=== PATIENT | female | born 1955 | race Caucasian/White ===

== ENCOUNTER → 2017-10-18 | Outpatient (CLI) | payer BC ==
[~2017-10-18] MED LIST: ALBU90OI; BACL10 PO; BREO ELLIPTA 11 EACH INH; BUPR150ER PO; CELE100 PO; DESV50 PO; ESTRADIOL1 MG PO; GABA600 PO; INCRUSE ELLI62.5 MCG INH; LEVSOD100 PO; LOSARTAN POTASS25 MG PO; OXCA300 PO; Omeprazole20 M1 PO; TRAZ100 PO
[2017-10-18 12:27] LABS: BASOPHILS ABSOLUTE AUTO 0.06 K/mm3 (0.00-0.23); BASOPHILS PERCENT AUTO 1 % (0-2); EOSINOPHILS ABSOLUTE AUTO 0.19 K/mm3 (0.00-0.68); EOSINOPHILS PERCENT AUTO 2 % (0-6); Hematocrit 39.7 % (33.0-51.0); Hemoglobin 14.1 g/dL (11.5-16.0); IMMATURE GRAN ABSOLUTE AUTO 0.02 K/mm3 (0.00-0.10); IMMATURE GRAN PERCENT AUTO 0 % (0-1); LYMPHOCYTES ABSOLUTE AUTO 1.64 K/mm3 (0.84-5.20); LYMPHOCYTES PERCENT AUTO 20 % (21-46); MONOCYTES ABSOLUTE AUTO 0.48 K/mm3 (0.16-1.47); MONOCYTES PERCENT AUTO 6 % (4-13); Mean Corpuscular HGB 32.7 pg (26.0-34.0); Mean Corpuscular HGB Conc 35.5 g/dL (31.5-36.5); Mean Corpuscular Volume 92 fL (80-100); Mean Platelet Volume 10.4 fL (9.1-12.4); NEUTROPHILS ABSOLUTE AUTO 5.96 K/mm3 (1.96-9.15); NEUTROPHILS PERCENT AUTO 72 % (41-73); Platelet Count 261 K/mm3 (150-400); RDW Coefficient Variation 13.7 % (11.7-14.2); RDW Standard Deviation 47.2 fL (35.1-46.3); Red Blood Cell Count 4.31 M/mm3 (3.80-5.20); White Blood Cell Count 8.35 K/mm3 (4.00-11.30)
[2017-10-18 12:48] LABS: Anion Gap 10 mmol/L (6-16); Blood Urea Nitrogen 13 mg/dL (8-24); Bun/Creatinine Ratio 15.7 (12.0-20.0); CO2, Blood 27 mmol/L (21-32); Calcium, Blood 8.8 mg/dL (8.5-10.1); Chloride, Blood 105 mmol/L (98-108); Creatinine, Blood 0.83 mg/dL (0.40-1.00); Glomerular Filtration Rate >60 (60-); Glucose, Blood 105 mg/dL (70-99); Potassium, Blood 3.7 mmol/L (3.5-5.5); Sodium, Blood 142 mmol/L (136-145); Thyroid Stimulating Hormone 2.602 uIU/mL (0.360-4.800)
== END | disposition home or self-care (01) ==
LOC: LAB EV 12:23
PROVIDERS: Family Medicine
DX: R53.83 Other fatigue (principal)
CPT/HCPCS: 80048; 84443; 85025

== ENCOUNTER 2017-11-25 08:41 | Day surgery (SDC) | payer BC ==
[~2017-11-25] VITALS: Ht 172.7 cm; Wt 73.0 kg
== END 2017-11-25 11:23 | disposition home or self-care (01) ==
LOC: ORSCSDS 08:41
PROVIDERS: Internal Medicine Gastroenterology
PROC: 0D758ZZ Dilation of Esophagus, Via Natural or Artificial Opening Endoscopic (ICD-10-PCS; principal; 2017-11-25 10:00)
PROC: 0DJ08ZZ Inspection of Upper Intestinal Tract, Via Natural or Artificial Opening Endoscopic (ICD-10-PCS; principal; 2017-11-25 10:00)
DX: R13.10 Dysphagia, unspecified (principal); K29.70 Gastritis, unspecified, without bleeding; R11.2 Nausea with vomiting, unspecified; R10.9 Unspecified abdominal pain; R63.4 Abnormal weight loss; R19.4 Change in bowel habit; Z87.891 Personal history of nicotine dependence; Z79.899 Other long term (current) drug therapy
CPT/HCPCS: 88305; 88342; J7120

== ENCOUNTER → 2019-02-13 | Outpatient (CLI) | payer MEDICARE, BC, OTHER ==
[2019-02-15 10:25] LABS: Stool Occult Bld Immuno 1 Negative (NEGATIVE)
== END | disposition home or self-care (01) ==
LOC: LAB EV 09:30
PROVIDERS: Physician Assistant
DX: Z13.9 Encounter for screening, unspecified (principal)
CPT/HCPCS: G0328

== ENCOUNTER 2021-05-03 10:23 | Day surgery (SDC) | payer MEDICARE, BC, OTHER ==
[~2021-05-03] VITALS: Ht 170.2 cm; Wt 79.2 kg
--- NOTE | 2021-05-03 11:57 | NUR ---
05/03/21 1157 Mirta Salguero RIGHT KNEE POST
--- NOTE | 2021-05-03 15:21 | NUR ---
05/03/21 1521 Alma Graff S PT.'S SAID THEY NEVER HAD NORCO RX FILLED BUT TOOK IT IN TO BE FILLED TODAY. DR. SILVERIO WROTE ANOTHER RX FOR PERCOCET. DR. SILVERIO CALLED BY [facility] [place]AR[place] WHICH RX HE WANTED. PER DR. SILVERIO HE THINKS PT. SHOULD HAVE THE PERCOCET RX INSTEAD OF THE NORCO. WILL CALL [facility] TO CANCEL NORCO RX & WILL GIVE NEW RX FOR PERCOCET. INSTRUCTED ON THIS.
== END 2021-05-03 16:15 | disposition home or self-care (01) ==
LOC: ORSCSDS 10:23
PROVIDERS: Orthopaedic Surgery
PROC: 0QS Lower Bones, Reposition (ICD-10-PCS; principal; 2021-05-03 11:30)
PROC: 0QUG4KZ Supplement Right Tibia with Nonautologous Tissue Substitute, Percutaneous Endoscopic Approach (ICD-10-PCS; principal; 2021-05-03 11:30)
DX: S82.121A Displaced fracture of lateral condyle of right tibia, initial encounter for closed fracture (principal); F17.210 Nicotine dependence, cigarettes, uncomplicated; I10 Essential (primary) hypertension; J43.9 Emphysema, unspecified; J45.909 Unspecified asthma, uncomplicated; Z87.891 Personal history of nicotine dependence; E03.9 Hypothyroidism, unspecified; L40.9 Psoriasis, unspecified; E78.5 Hyperlipidemia, unspecified; Z79.899 Other long term (current) drug therapy
CPT/HCPCS: A9270; C1713; C1769; J0171; J0690; J1100; J1170; J2405; J2704; J3010; J7120

== ENCOUNTER 2023-01-28 08:31 | Day surgery (SDC) | payer MEDICARE, BC, OTHER ==
[~2023-01-28] VITALS: Ht 165.1 cm; Wt 79.4 kg
[2023-01-28] VITALS (20 sets, daily range): BP systolic 119–168; BP diastolic 70–108
[~2023-01-28 08:31] MED LIST changes: +ALBU8HFA2 INH; -ALBU90OI; +ALBU90OI NEB; +Amitriptyline H10 MG PO; +BREO ELLIPTA 11 EAC1 INH; +BUPROPION HCL100 MG PO; -ESTRADIOL1 MG PO; +EUTHYROX100 MC1 PO; +Estradiol1 MG PO; +GABA300 PO; -GABA600 PO; +KRILL OIL500 MG PO; +LOSA50 PO; -LOSARTAN POTASS25 MG PO; +MERIBIN5 MG PO; +MULVITA PO; +NORT25 PO; +OMEP20ER PO; +OXCA150 PO; -OXCA300 PO; -Omeprazole20 M1 PO; +RED RICE YEAST PO; +VITAMIN D325 MC3 PO; +Vitamin B-12100 MCG PO
--- NOTE | 2023-01-28 08:55 | NUR ---
Ambulatory in Day Surgery with walker, however patient states she brought it for post-operatively. Pre-Op teaching done. Pt verbalizes understanding. Patient confirms NPO status and agrees with scheduled surgery. Patient reports completing Chlorhexadine shower X2 prior to admission to hospital. Lungs clear T/O to Auscultation. Surgical site prepped with 2% Chlorhexidine cloth wipe. History, Chart, Medications and Allergies reviewed before start of procedure.
[2023-01-28] MEDS ORDERED: ASPI81CH PO (10:46)
[2023-01-28] MEDS ORDERED: OXYC5 PO (10:47)
[2023-01-28] MEDS ORDERED: SULTRIDS PO (10:47)
[2023-01-28] MEDS ORDERED: PROM25 PO (10:47)
--- NOTE | 2023-01-28 14:46 | NUR ---
PATIENT CAME BACK FROM PACU TODAY AT 1430. POD 0 RIGHT TKA PATIENT IS A&OX4. PATIENT IS ON 2L NC WITH >90% OXYGEN SATS AT THIS TIME. SHE DENIES PAIN IN HER RIGHT KNEE AT THIS TIME. SHE IS ABLE TO MOVE FINGERS AND TOES WHEN ASKED. PEDAL PULSES ARE WARM TO TOUCH AND STRONG. FARZANEH WRAP IS C/D/I ON THE RIGHT KNEE. POLAR PACK IN PLACE. PATIENT AND PATIENTS WERE EDUCATED ON IGNITION SOURCES AND THE RISKS ASSOCIATED. BOTH VERBALIZED UNDERSTANDING AND HAD NO FURTHER QUESTIONS WELL DENIED HAVING IGNITION SOURCES IN THEIR PERSONAL BELONGINGS. PATIENT IS LAYING IN BED WITH CALL LIGHT IN REACH. AT BEDSIDE. PATIENT IS TOLERATING SMALL AMOUNTS OF PO INTAKE.
--- NOTE | 2023-01-28 17:02 | NUR ---
SHIFT SUMMARY: POD 0 RIGHT TKA PATIENT IS A&OX4. VS ARE WNL AND IS ON RA. PAIN IS MANAGED WITH PO PAIN MEDICATIONS. HER RIGHT KNEE AFTER WORKING WITH PHYSICAL THERAPY HAD A SMALL BLOOD COMING THROUGH THE FARZANEH WRAP BUT HAS SINCE BEEN CHANGED AND IS C/D/I. PATIENT DENIES NUMBNESS OR TINGLING AND IS ABLE TO WIGGLE FINGERS AND TOES WHEN ASKED. PEDAL PULSES ARE STRONG AND WARM TO TOUCH. POLAR PACK IN PLACE. PATIENT IS SITTING UP IN A RECLINER WITH CALL LIGHT IN REACH AND LEGS ELEVATED IN RECLINER.
--- NOTE | 2023-01-28 18:30 | NUR ---
PATIENTS RIGHT KNEE DRESSING WAS CHANGED AFTER PATIENT WENT TO THE BATHROOM WITH THE FWW AND GAIT BELT. THIS NURSE UNWRAPPED THE DRESSING AND NOTICED IT IS ONE SMALL SPOT THAT IS CONTINUOUSLY BLEEDING. THIS NURSE THEN NOTIFIED DR. SILVERIO OF THE FINDINGS. DR. SILVERIO STATED "CLEAN THE INCISION WITH HYDROGEN PEROXIDE AND RE-DRESS/REINFORCE WITH FARZANEH WRAP/GAUZE/ABD NEEDED. WELL CONTINUE POLAR PACK ON THE KNEE AND DO NOT GIVE THE BLOOD THINNER TONIGHT". THIS NURSE RE-DRESSED HER RIGHT KNEE AND IS C/D/I. REPORTED TO NIGHTSHIFT NURSE WHAT DR. SILVERIO SAID. PATIENT IS LAYING IN BED WITH CALL LIGHT IN REACH.
--- NOTE | 2023-01-28 21:00 | NUR ---
DRESSING CHANGE DURING SHIFT ASSESSMENT, IT IS NOTED THAT INCISION CONTINUES TO BLEED AT LATERAL SIDE OF KNEE. DRESSING SATURATED W/ BRIGHT RED BLOOD. DRESSINGS REMOVED, HYDROGEN PEROXIDE PATTED AND REDRESSED W/ ABD, GAUZE WRAP, AND FARZANEH BANDAGE.
--- NOTE | 2023-01-28 22:54 | NUR ---
CALL TO NUSRAT SPOKE WITH NUSRAT REGARDING BLEEDING AND INFORMED TO CONTINUE TO REINFORCE DRESSINGS WHILE APPLYING PRESSURE TO ASSIST IN CLOT FORMATION. NOTIFY IF INCREASE IN BLOOD DRAINAGE OR CHANGES IN STATUS.
[2023-01-29 00:21] VITALS: BP 130/67
[2023-01-29 04:36] VITALS: BP 128/72
[2023-01-29 05:26] LABS: BASOPHILS ABSOLUTE AUTO 0.05 K/mm3 (0.00-0.23); BASOPHILS PERCENT AUTO 0 % (0-2); EOSINOPHILS ABSOLUTE AUTO 0.03 K/mm3 (0.00-0.68); EOSINOPHILS PERCENT AUTO 0 % (0-6); Hematocrit 25.8 % (33.0-51.0); Hemoglobin 8.8 g/dL (11.5-16.0); IMMATURE GRAN ABSOLUTE AUTO 0.05 K/mm3 (0.00-0.10); IMMATURE GRAN PERCENT AUTO 0 % (0-1); LYMPHOCYTES PERCENT AUTO 19 % (21-46); MONOCYTES ABSOLUTE AUTO 1.56 K/mm3 (0.16-1.47); MONOCYTES PERCENT AUTO 12 % (4-13); Mean Corpuscular HGB 31.9 pg (26.0-34.0); Mean Corpuscular HGB Conc 34.1 g/dL (31.5-36.5); Mean Corpuscular Volume 94 fL (80-100); Mean Platelet Volume 10.6 fL (9.1-12.4); NEUTROPHILS ABSOLUTE AUTO 9.15 K/mm3 (1.96-9.15); NEUTROPHILS PERCENT AUTO 68 % (41-73); Platelet Count 241 K/mm3 (150-400); RDW Coefficient Variation 14.6 % (11.7-14.2); RDW Standard Deviation 50.1 fL (35.1-46.3); Red Blood Cell Count 2.76 M/mm3 (3.80-5.20); White Blood Cell Count 13.44 K/mm3 (4.00-11.30)
--- NOTE | 2023-01-29 06:02 | NUR ---
SHIFT SUMMARY POD 1 R TKA, DRESSING VISIBLE W/ BRIGHT RED BLOOD TO LATERAL INCISION AT KNEE. DRESSING CHANGED X1 THIS SHIFT, ADVISED BY DR. SILVERIO TO REINFORCE DRESSINGS WITHOUT CHANGING. FARZANEH WRAP SNUG TO ENCOURAGE CLOT FORMATION. VSS, PT DENIES DIZZINESS, SOB, N/T, N/V. SBA W/ WALKER TO BATHROOM, PT INDEPENDANT IN BED. PT MEDICATED FOR PAIN X1 OXY 5MG THIS SHIFT AT HS. PT SLEPT WELL T/O NIGHT. NO ACUTE CHANGES. CALL LIGHT IN REACH. WILL REPORT TO DAY SHIFT STAFF.
[2023-01-29 06:13] LABS: Bun/Creatinine Ratio 19.5 (12.0-20.0); Calcium, Blood 7.9 mg/dL (8.5-10.1); Creatinine, Blood 0.82 mg/dL (0.40-1.00); Magnesium, Blood 1.6 mg/dL (1.6-2.4); Potassium, Blood 3.8 mmol/L (3.5-5.5)
[2023-01-29 07:47] VITALS: BP 143/71
[2023-01-29 14:38] VITALS: BP 125/74
--- NOTE | 2023-01-29 18:02 | NUR ---
SHIFT SUMMARY PT AxOx4. POST OP DAY 1 FROM TOTAL RIGHT KNEE ARTHROPLASTY. PT MEDICATED FOR PAIN PER EMAR. RLE ELEVATED AND ICED PRN. PHYSICAL THERAPY IN FOR EVAL AND TREAT THIS AFTERNOON. PT TOLERATED AMBULATING IN HALLS WELL. LATERAL KNEE WOUND BLEEDING THROUGH BANDAGE THIS AM. SURGEON PRESENT FOR DRESSING CHANGE AND ASSESSMENT. BLEEDING DID SLOW SIGNIFICANTLY THROUGHOUT THE DAY AND WAS REASSESSED AND REDRESSED BY AT APPROX 1700. PER PROVIDER, PATIENT WAS APPROPRIATE FOR DISCHARGE AT THIS TIME. PT AND HER SPOUSE WERE PROVIDED DC INSTRUCTIONS AT THIS TIME INCLUDING FOLLOW UP INFORMATION, PHYSICAL THERAPY INFO, WOUND CARE INSTRUCTIONS, DISCHARGE MEDICATIONS AND PATIENT EDUCATION PACK ON POST OP CARE. PT AND SPOUSE VERBALIZE UNDERSTANDING. PT WAS SAFELY ESCORTED OUT VIA WC WITH PEN MAKER AND SPOUSE.
--- NOTE | 2023-01-30 16:19 | NUR ---
01/30/23 1619 Krupa De Paz VERIFICATION: EDIT CHART.
== END 2023-01-29 18:45 | disposition home or self-care (01) ==
LOC: ORSCMMR 08:31 → MEDS 14:04 → ORSCMMR 01-29 18:45
PROVIDERS: Orthopaedic Surgery
PROC: 0SRC0J9 Replacement of Right Knee Joint with Synthetic Substitute, Cemented, Open Approach (ICD-10-PCS; principal; 2023-01-28 10:45)
PROC: 0SPD04Z Removal of Internal Fixation Device from Left Knee Joint, Open Approach (ICD-10-PCS; principal; 2023-01-28 10:45)
DX: M17.11 Unilateral primary osteoarthritis, right knee (principal); S82.121D Displaced fracture of lateral condyle of right tibia, subsequent encounter for closed fracture with routine healing; I10 Essential (primary) hypertension; J44.9 Chronic obstructive pulmonary disease, unspecified; E78.5 Hyperlipidemia, unspecified; E03.9 Hypothyroidism, unspecified; Z79.899 Other long term (current) drug therapy; Z87.891 Personal history of nicotine dependence
CPT/HCPCS: 36416; 73560-RT; 80048; 83735; 85025; 94640; 94664; 94760; 97110; 97116; 97162; A9270; C1713; C1776; J0171; J0690; J0735; J1885; J2795; J3010; J3370; J7120

== ENCOUNTER 2024-03-14 20:57 | Emergency (ER) | payer MEDICARE, BC ==
[~2024-03-14] VITALS: Ht 167.6 cm; Wt 79.4 kg
[~2024-03-14 20:57] MED LIST changes: +ASPI81CH PO; +OXYC5 PO; +PROM25 PO; +SULTRIDS PO
[2024-03-14 22:42] LABS: BASOPHILS ABSOLUTE AUTO 0.06 K/mm3 (0.00-0.23); BASOPHILS PERCENT AUTO 1 % (0-2); EOSINOPHILS ABSOLUTE AUTO 0.08 K/mm3 (0.00-0.68); EOSINOPHILS PERCENT AUTO 1 % (0-6); Hematocrit 40.8 % (33.0-51.0); Hemoglobin 14.1 g/dL (11.5-16.0); IMMATURE GRAN ABSOLUTE AUTO 0.02 K/mm3 (0.00-0.10); IMMATURE GRAN PERCENT AUTO 0 % (0-1); LYMPHOCYTES ABSOLUTE AUTO 1.56 K/mm3 (0.84-5.20); LYMPHOCYTES PERCENT AUTO 18 % (21-46); MONOCYTES ABSOLUTE AUTO 0.36 K/mm3 (0.16-1.47); MONOCYTES PERCENT AUTO 4 % (4-13); Mean Corpuscular HGB 31.6 pg (26.0-34.0); Mean Corpuscular HGB Conc 34.6 g/dL (31.5-36.5); Mean Corpuscular Volume 92 fL (80-100); Mean Platelet Volume 10.6 fL (9.1-12.4); NEUTROPHILS ABSOLUTE AUTO 6.51 K/mm3 (1.96-9.15); NEUTROPHILS PERCENT AUTO 76 % (41-73); Platelet Count 388 K/mm3 (150-400); RDW Standard Deviation 47.7 fL (35.1-46.3); Red Blood Cell Count 4.46 M/mm3 (3.80-5.20); White Blood Cell Count 8.59 K/mm3 (4.00-11.30)
[2024-03-14 22:55] LABS: Albumin, Blood 4.4 g/dL (3.4-5.0); Bilirubin, Total 0.6 mg/dL (0.1-1.0); Bun/Creatinine Ratio 31.1 (12.0-20.0); Creatinine, Blood 0.74 mg/dL (0.40-1.00); Globulin, Blood 4.2 g/dL (2.2-4.0); Potassium, Blood 4.1 mmol/L (3.5-5.5); Total Protein, Blood 8.6 g/dL (6.4-8.2)
[2024-03-14] MEDS ORDERED: NS 1,000 ML IV SCH (23:55)
[2024-03-14] MEDS ORDERED: Ondansetron HCl 2 MG / ML 2ML Vial IV ONE (23:55)
[2024-03-15] MEDS ORDERED: Ketorolac Tromethamine 30mg Vial IV ONE (01:00)
[2024-03-15] MEDS ORDERED: Capsaicin 0.025% Cream TOP ONE (01:00)
[2024-03-15 02:30] VITALS: BP 162/93
[2024-03-15] MEDS ORDERED: ONDA4ODT MM (02:38)
== END 2024-03-15 02:45 | disposition home or self-care (01) ==
LOC: ER 20:57
PROVIDERS: Student in an Organized Health Care Education/Training Program
DX: R11.2 Nausea with vomiting, unspecified (principal); R10.33 Periumbilical pain; E86.0 Dehydration; I10 Essential (primary) hypertension; E03.9 Hypothyroidism, unspecified; K21.9 Gastro-esophageal reflux disease without esophagitis; J45.909 Unspecified asthma, uncomplicated; Z88.8 Allergy status to other drugs, medicaments and biological substances; Z79.899 Other long term (current) drug therapy; Z79.890 Hormone replacement therapy; Z79.82 Long term (current) use of aspirin; Z87.891 Personal history of nicotine dependence
CPT/HCPCS: 80053; 85025; 93005; 93010; 96361; 96374; 96375; 99284-25; A9270; J1885; J2405; J7030